=== PATIENT | female | born 1990 | race Asian ===

== ENCOUNTER 2020-12-10 21:37 | Emergency (ER) | payer BC ==
--- NOTE | 2020-12-10 22:36 | EDM.PDOC ---
ED HPI GENERAL MEDICAL PROBLEM - General Chief Complaint: General Stated Complaint: SOB Time Seen by Provider: 12/10/20 22:36 - History of Present Illness INITIAL COMMENTS - FREE TEXT/NARRATIVE: 30-year-old female presents the emergency room with cough fever and generalized aches and pains. This is been going on for 7 or 8 days. She has had 2 negative Covid test so far. She is not having any chest pain chest pressure no shortness of breath she just has a frequent annoying cough and fevers as well as her aches and pains. She has not had the vaccine. Patient's past medical history is noncontributory. - Related Data Allergies Allergy/AdvReac Type Severity Reaction Status Date / Time No Known Allergies Allergy Verified 12/10/20 22:02 Home Meds: Home Meds . [No Known Home Meds] 12/10/20 [History] Past Medical History [employer] History: Reports: - Past Surgical History GI Surgical History: Reports: Cholecystectomy Social & Family History - Tobacco Use Tobacco Use Status *Q: Never Tobacco User - Caffeine Use Caffeine Use: Reports: None - Recreational Drug Use Recreational Drug Use: No ED ROS GENERAL - Review of Systems Review Of Systems: See Below Constitutional: Reports: No Symptoms HEENT: Reports: No Symptoms Respiratory: Reports: Cough. Denies: No Symptoms, Shortness of Breath, Wheezing, Sputum Cardiovascular: Reports: No Symptoms Endocrine: Reports: No Symptoms GI/Abdominal: Reports: No Symptoms : Reports: No Symptoms Musculoskeletal: Reports: No Symptoms Skin: Reports: No Symptoms Neurological: Reports: No Symptoms ED EXAM, GENERAL - Physical Exam Exam: See Below Exam Limited By: No Limitations General Appearance: Alert, No Apparent Distress Eye Exam: Bilateral Eye: Normal Inspection Ears: Normal External Exam, Normal Canal, Hearing Grossly Normal, Normal TMs Nose: Normal Inspection, Normal Mucosa, No Blood Throat/Mouth: Normal Inspection, Normal Lips, Normal Teeth, Normal Gums, Normal Oropharynx, Normal Voice, No Airway Compromise Head: Atraumatic, Normocephalic Neck: Normal Inspection, Supple, Non-Tender, Full Range of Motion. No: Lymphadenopathy (L), Lymphadenopathy (R) Respiratory/Chest: No Respiratory Distress, Lungs Clear, Normal Breath Sounds Cardiovascular: Regular Rate, Rhythm, No Edema, No Murmur GI/Abdominal: Normal Bowel Sounds, Soft, Non-Tender Course - Vital Signs Last Recorded V/S: Last Vital Signs Temp 37.8 C 12/10/20 21:59 Pulse 100 12/10/20 21:59 Resp 16 12/10/20 21:59 BP 99/71 12/10/20 21:59 Pulse Ox 97 12/10/20 21:59 - Orders/Labs/Meds Orders: Active Orders 24 hr Category Date Time Status Chest 1V Frontal [CR] Stat Exams 12/10/20 22:00 Taken Labs: Laboratory Tests 12/10/20 12/10/20 12/10/20 Range/Units 22:23 22:23 22:25 WBC 4.64 (3.98-10.04) K/mm3 RBC 4.75 (3.98-5.22) M/mm3 Hgb 13.6 (11.2-15.7) gm/dl Hct 40.7 (34.1-44.9) % MCV 85.7 (79.4-94.8) fl MCH 28.6 (25.6-32.2) pg MCHC 33.4 (32.2-35.5) g/dl RDW Std Deviation 42.2 (36.4-46.3) fL Plt Count 137 L (182-369) K/mm3 MPV 10.9 (9.4-12.3) fl Neut % (Auto) 58.6 (34.0-71.1) % Lymph % (Auto) 31.9 (19.3-51.7) % Stafford % (Auto) 9.1 (4.7-12.5) % Eos % (Auto) 0 L (0.7-5.8) Baso % (Auto) 0.2 (0.1-1.2) % Neut # (Auto) 2.72 (1.56-6.13) K/mm3 Lymph # (Auto) 1.48 (1.18-3.74) K/mm3 Stafford # (Auto) 0.42 H (0.24-0.36) K/mm3 Eos # (Auto) 0.00 L (0.04-0.36) K/mm3 Baso # (Auto) 0.01 (0.01-0.08) K/mm3 Manual Slide Review Normal smear Sodium 133 L (136-145) mEq/L Potassium 3.4 L (3.5-5.1) mEq/L Chloride 98 (98-107) mEq/L Carbon Dioxide 29 (21-32) mEq/L Anion Gap 9.4 (5-15) BUN 9 (7-18) mg/dL Creatinine 0.8 (0.55-1.02) mg/dL Est Cr Clr Drug Dosing 81.33 mL/min Estimated GFR (MDRD) > 60 (>60) mL/min BUN/Creatinine Ratio 11.3 L (14-18) Glucose 110 H (70-99) mg/dL Calcium 8.4 L (8.5-10.1) mg/dL Magnesium 2.2 (1.8-2.4) mg/dL Total Bilirubin 0.3 (0.2-1.0) mg/dL AST 38 H (15-37) U/L ALT 31 (14-59) U/L Alkaline Phosphatase 42 L (46-116) U/L C-Reactive Protein 2.5 H* (<1.0) mg/dL Total Protein 8.3 H (6.4-8.2) g/dl Albumin 3.5 (3.4-5.0) g/dl Globulin 4.8 gm/dL Albumin/Globulin Ratio 0.7 L (1-2) SARS-CoV-2 RNA (EMILIANO) Positive H (NEGATIVE) - Re-Assessments/Exams Free Text/Narrative Re-Assessment/Exam: 12/10/20 23:49 Chest x-ray is for the most part fairly normal. Her Covid test is positive. We did discuss the pros and cons of Regeneron therapy and she would like to hold off at this point. This is reasonable given the mild nature of her illness and with the timing of this I would expect her to get better fairly soon. The patient is also strongly considering getting the vaccine and this would need to be delayed with the Regeneron. Departure - Departure Time of Disposition: 23:51 Disposition: Home, Self-Care 01 Clinical Impression: Bronchitis due to COVID-19 virus - Discharge Information Referrals: PCP,None [Primary Care Provider] - Forms: ED Department Discharge Additional Instructions: Return to the emergency room with any questions problems or worsening symptoms. Tylenol as needed for discomfort. Continue social isolation for a total of 12 days starting from the onset of symptoms so you have another 5 days to go. Sepsis Event Note (ED) - Evaluation Sepsis Screening Result: No Definite Risk - Focused Exam Vital Signs: Vital Signs Temp Pulse Resp BP Pulse Ox 12/10/20 21:59 37.8 C 100 16 99/71 97 - My Orders Last 24 Hours: My Active Orders 12/10/20 22:00 Chest 1V Frontal [CR] Stat - Assessment/Plan Last 24 Hours: My Active Orders 12/10/20 22:00 Chest 1V Frontal [CR] Stat
--- NOTE | 2020-12-11 07:50 | CR ---
Chest: Frontal view of the chest was obtained. Comparison: No previous study. Hazy density is seen within both sides of the chest. Lungs otherwise are grossly clear. Heart size and mediastinum are normal. Bony structures are grossly intact. Impression: 1. Hazy density within both sides of the chest. Please exclude COVID pneumonia as an etiology. Findings otherwise are likely due to fairly prominent bronchitis. Diagnostic code #3
== END 2020-12-11 00:01 | disposition home or self-care (01) ==
LOC: JD.ED 21:37
DX: U07.1 COVID-19 (principal); J40 Bronchitis, not specified as acute or chronic
CPT/HCPCS: 36415; 71045; 71045-26; 80053; 83735; 85025; 86140; 87804; 99283; 99283-25; U0002